=== PATIENT | male | born 1950 | race Caucasian/White ===

== ENCOUNTER 2017-02-22 09:03 | Day surgery (SDC) | payer MEDICARE ==
[2017-02-22] MEDS ORDERED: LIDOCAINE 2% MDV (20MG/ML) 20ML VIAL IV ONE (09:04)
[2017-02-22] MEDS ORDERED: PROPOFOL 10 MG/ML VIAL IV ONE (09:04)
--- NOTE | 2017-02-23 12:30 | Operative Note ---
DATE OF SURGERY: 02/22/2017 REFERRING PROVIDER: Carl Gauthier DO PREOPERATIVE DIAGNOSIS: History of adenomatous colon polyps. POSTOPERATIVE DIAGNOSES: 1. Rectosigmoid colon polyp. 2. Moderate to severe sigmoid diverticulosis. OPERATION: COLONOSCOPY with cold snare polypectomy. Preparation Quality: Good. Estimated Blood Loss: Minimal. Samples Obtained: Rectosigmoid polyp. Complications: None apparent. PROCEDURE: After informed consent was obtained, the patient was placed in the left lateral decubitus position in the endoscopy suite, sedated and monitored by the Department of Anesthesia. Digital rectal exam revealed no palpable mass. A well-lubricated PCF-180 colonoscope was inserted into the rectum and advanced to the ascending colon. Abdominal pressure was required to intubate the cecal cap. The preparation quality was good to excellent. The ileocecal valve, appendiceal orifice, ascending colon, transverse colon, and descending colon were free of inflammatory changes, mass lesions or polyps. The sigmoid colon demonstrated moderate diverticular changes. The rectosigmoid colon revealed a 4-5 mm sessile polyp, which was removed with a cold snare. The rectum was otherwise unremarkable in forward and in J-turn views. The endoscope was straightened, the rectal ampulla deflated and the endoscope was removed. RECOMMENDATIONS: Patient should follow a high-fiber diet and use a fiber supplement such as Citrucel or Benefiber on a daily basis. I recommend a repeat exam in 5 years for continued surveillance purposes. As always, thank you for allowing me to participate in the health care of your patients. CC: Carl Gauthier DO MTDJordan
== END 2017-02-22 11:03 | disposition home or self-care (01) ==
LOC: HOP 09:03
PROVIDERS: ATTEND Internal Medicine Gastroenterology
DX: Z12.11 Encounter for screening for malignant neoplasm of colon (principal); Z86.010 Personal history of colon polyps; D12.7 Benign neoplasm of rectosigmoid junction; K57.30 Diverticulosis of large intestine without perforation or abscess without bleeding; I10 Essential (primary) hypertension; E78.00 Pure hypercholesterolemia, unspecified